=== PATIENT | female | born 1950 | race Caucasian/White ===

== ENCOUNTER 2021-12-28 16:46 | Emergency (ER) | payer OTHER, SELFPAY ==
[2021-12-28 16:48] VITALS: BP 194/98; PULSE 69; RESP 15; TEMP 36.1; O2SAT 98; BMI 19.8
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
[2021-12-28] MEDS: ACETAMINOPHEN 325 MG TABLET 975 MG PO (17:12)
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
[2021-12-28 19:24] VITALS: BP 187/92; PULSE 66; RESP 16; O2SAT 98
== END 2021-12-28 19:24 | disposition home or self-care (01) ==
PROVIDERS: Emergency Provider Family Medicine Addiction Medicine
DX: S16.1XXA Strain of muscle, fascia and tendon at neck level, initial encounter (principal); V89.2XXA Person injured in unspecified motor-vehicle accident, traffic, initial encounter
CPT/HCPCS: 72125; 99283